=== PATIENT | female | born 1945 | race Caucasian/White ===

== ENCOUNTER 2016-06-11 23:28 | Emergency (ER) | payer MEDICARE, OTHER | END 2016-06-12 01:43 | disposition home or self-care (01) | LOC: ER 23:28 | DX: J45.909 Unspecified asthma, uncomplicated (principal); I10 Essential (primary) hypertension; E78.5 Hyperlipidemia, unspecified; Z90.49 Acquired absence of other specified parts of digestive tract | CPT/HCPCS: 36415; 96361; 96374; 96375; J0696 ==